=== PATIENT | female | born 1990 | race Caucasian/White ===

== ENCOUNTER 2018-06-13 16:45 | Outpatient (CLI) | payer MEDICAID ==
[2018-06-13 18:19] LABS: ADD UMIC YES; UR ASCORBIC ACID NEGATIVE (NEGATIVE); UR BILIRUBIN (Dip) NEGATIVE (NEGATIVE); UR BLOOD (Dip) 2+ mg/dL (NEGATIVE); UR CLARITY CLEAR (CLEAR); UR COLOR YELLOW (YELLOW); UR GLUCOSE (Dip) NEGATIVE (NEGATIVE); UR KETONES (Dip) NEGATIVE (NEGATIVE); UR LEUKOCYTE ESTERASE (Dip) NEGATIVE Leu/ul (NEGATIVE); UR NITRITE (Dip) NEGATIVE (NEGATIVE); UR RBC 0 /HPF (0-5); UR SPECIFIC GRAVITY (Dip) 1.005 (1.003-1.030); UR SQUAMOUS EPITHELIAL CELL FEW /HPF (FEW); UR TOTAL PROTEIN (Dip) NEGATIVE (NEGATIVE); UR UROBILINOGEN (Dip) NEGATIVE (NEGATIVE); UR WBC 0 /HPF (0-5)
[2018-06-13] MEDS: LOPERAMIDE HCL 1 MG/5 ML LIQUID (10 ML UD CUP) PO (19:48)
== END 2018-06-13 19:50 | disposition home or self-care (01) ==
LOC: OBT 16:45 → L-D 16:45 → OBT 19:50
DX: O30.003 Twin pregnancy, unspecified number of placenta and unspecified number of amniotic sacs, third trimester (principal); O26.893 Other specified pregnancy related conditions, third trimester; R19.7 Diarrhea, unspecified; R10.9 Unspecified abdominal pain; Z3A.29 29 weeks gestation of pregnancy
CPT/HCPCS: 59025; 76815; 76817; 81001

== ENCOUNTER 2018-06-23 09:59 | Outpatient (CLI) | payer MEDICAID ==
[2018-06-23 11:05] LABS: RUPTURE FETAL MEMBRANES NEGATIVE (NEGATIVE)
== END 2018-06-23 12:53 | disposition home or self-care (01) ==
LOC: OBT 09:59 → L-D 09:59 → OBT 12:53
DX: O62.9 Abnormality of forces of labor, unspecified (principal); Z3A.30 30 weeks gestation of pregnancy
CPT/HCPCS: 76815; 76817; 76818; 84112

== ENCOUNTER 2018-07-21 16:15 | Outpatient (CLI) | payer MEDICAID | END 2018-07-21 18:05 | disposition home or self-care (01) | LOC: OBT 16:15 → L-D 16:16 → OBT 18:05 | DX: O30.003 Twin pregnancy, unspecified number of placenta and unspecified number of amniotic sacs, third trimester (principal); Z3A.34 34 weeks gestation of pregnancy | CPT/HCPCS: 76818 ==

== ENCOUNTER 2018-08-27 10:37 | Emergency (ER) | payer MEDICAID ==
[2018-08-27] MEDS: BACITRACIN 0.9 GM OINT TOP (14:31)
== END 2018-08-27 14:15 | disposition home or self-care (01) ==
LOC: FTE 10:37
DX: Z48.02 Encounter for removal of sutures (principal)
CPT/HCPCS: 99281; Z7502